=== PATIENT | female | born 1925 | race Caucasian/White ===

== ENCOUNTER 2016-05-19 09:06 | Inpatient (IN) | payer MEDICARE ==
--- NOTE | ~2016-05-19 | OP ---
Record Of Operation [facility] [address] [place]. [address] NAME: GEORGE GALAN : [birth year] STATUS : ADM Victor Manuel PAT#: [id number] AGE: 89 ADM/REG DATE : 05/19/16 MR#: [id number] REPORT SERV DATE: 05/19/16 DICTATED BY: DESIRE MURRIETA DATE: 05/19/16 REPORT STATUS : Draft TRANSCRIBED BY: MODL DATE: 05/19/16 DATE OF PROCEDURE: 05/19/2016 PREOPERATIVE DIAGNOSIS: Chronic wound left lower leg. POSTOPERATIVE DIAGNOSIS: Chronic wound left lower leg. PROCEDURES: 1. Debridement of skin and subcutaneous tissues, left leg 6 x 3 cm. 2. Placement of VAC dressing 18 cm2. SURGEON: Desire Murrieta M.D. ANESTHESIA: Local with sedation. COMPLICATIONS: None. BLOOD LOSS: Minimal. 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 It was felt to benefit from debridement. She had palpable pulses in her feet suggesting adequate perfusion. This was discussed in detail with the patient and daughters who expressed understanding and desired to proceed. DESCRIPTION OF PROCEDURE: The patient was taken to the operating room and placed in the supine position. She was given IV sedation without complication. Left leg was prepped and draped in a sterile fashion. Attention was turned to the side of the wound which is in the mid lower leg anteriorly. A 10 blade was used to excise the necrotic tissue to healthy bleeding tissue. Hemostasis was achieved with Bovie cautery. The wound measured 6 x 3 cm. A VAC sponge was cut to the appropriate length. The VAC adhesive was placed over the skin around the wound and the spinal was placed and an additional adhesive placed. Suction was initiated without difficulty. The patient tolerated the procedure well. She was taken to the recovery room in stable condition. QUE/LAILA Desire Murrieta M.D. / [id number] CC: Devin Marie
--- NOTE | ~2016-05-19 | DS ---
Discharge Summary [facility] [address] [place]. [address] NAME: GEORGE GALAN : [birth year] STATUS : DIS IN PAT#: [id number] AGE: 89 ADM/REG DATE : 05/19/16 MR#: [id number] REPORT SERV DATE: 05/29/16 DICTATED BY: DESIRE MURRIETA DATE: 05/28/16 REPORT STATUS : Draft TRANSCRIBED BY: LAILA DATE: 05/28/16 Data Collection from hospitalization DISCHARGE DIAGNOSES: 1. Chronic wound, left lower leg pain. 2. Parkinson's disease. 3. Hypertension. 4. Glaucoma. 5. Rheumatoid arthritis. CONSULTATIONS: None. PROCEDURES: Debridement of skin and subcutaneous tissue, left leg, 6 x 3 cm and placement of VAC dressing, 18 sq cm, 05/19/2016. DISCHARGE MEDICATIONS: Sinemet one tablet three times a day; Celebrex 200 mg daily; Voltaren 2 g topically four times a day as needed; Celexa 20 mg daily; vitamin B12, 1000 mcg IM every 30 days; vitamin D 5000 units daily; vitamin D3, 1000 units daily; CoQ10, 100 mg daily; Xalatan one drop at bedtime; Remeron 15 mg at bedtime; multivitamins one tablet daily; Bactroban 1 application topically twice a day; Monodox 100 mg twice a day; Actonel as instructed; Deltasone 10 mg daily; antacid 500 mg daily; D-mannose 1 twice a day; Actonel 35 mg every seven days; Tylenol caplet 1000 mg every six hours as needed; Lomotil 5 mg four times a day as needed; and A[place]o 5/325 one to two tablets every four hours as needed for pain. CONDITION ON DISCHARGE: Stable. DISPOSITION: The patient was discharged home to be followed by home health care. HOSPITAL COURSE: This is an 89-year-old female who had been seen in the office with a chronic necrotic wound on the left anterior lower leg. It was felt that this would benefit from debridement. She had palpable pulses in her feet suggesting adequate profusion. Treatment options were discussed, and it was elected to proceed with surgical intervention. She was admitted to the hospital at this time for further evaluation and treatment. Upon admission, she was taken to the operating room where she underwent the above-mentioned procedure, she tolerated this well, and there were no complications. The patient had had a urinary tract infection prior to admission. Urine culture was going to be checked. Over the next couple of days, she had no new complaints. She remained afebrile. Discharge planning was performed. On 05/22/2016, she had no new complaints. The wound VAC was clean, dry, and intact. Discharge instructions were given. She was evaluated by Physical Therapy. Due to her improved and stable condition, she was discharged home to be followed by home health care with the above-stated instructions. Information collected by: Adrianna Herrmann I submit the above information as my discharge summary. Discharge Summary [address] [address] NAME: GEORGE GALAN : [birth year] STATUS : DIS IN PAT#: [id number] AGE: 89 ADM/REG DATE : 05/19/16 MR#: [id number] REPORT SERV DATE: 05/29/16 DICTATED BY: DESIRE MURRIETA DATE: 05/28/16 REPORT STATUS : Draft TRANSCRIBED BY: LAILA DATE: 05/28/16 TG/LAILA Desire Murrieta M.D. / [id number] CC: Devin Marie
[~2016-05-19 09:06] MED LIST: ACET500CAP PO; ACTONEL35 MG PO; ADVIL PM1 CAP PO; ADVIL PO; ANTACID PO; ASAB PO; B121000P IM; BACDS PO; BACTROINT TOP; CALTRA600D PO; CELEBREX2 PO; CELEXA20 PO; CO Q-10100 MG PO; D 5000 PO; D-MANNOSE PO; GLUCCHONDR PO; HYDROCHLOROT12.5 MG PO; I10 PO; LOM PO; MONODOX100 MG PO; MULTIPLE VIT PO; NORCO1 TA1 PO; P10 PO; REM15 PO; SIN25 PO; VITAMIN D31000 UNIT PO; VOLTAREN1 % TOP; XALAT OPH; ZOCOR20 PO
[2016-05-19 09:43] LABS: BASOPHILS 0.3 %; BASOPHILS ABSOLUTE 0.03 10/3/uL (0.0-0.16); EOSINOPHILS 1.9 %; HEMOGLOBIN 10.8 g/dL (12.0-16.0); IMMATURE GRANULOCYTES 0.7 %; IMMATURE GRANULOCYTES ABSOLUTE 0.08 10/3/uL (0.0-0.11); LYMPHOCYTES 7.8 %; LYMPHOCYTES ABSOLUTE 0.83 10/3/uL (0.67-4.30); MEAN CORPUS HGB CONC 31.8 g/dL (32.0-36.0); MEAN CORPUSCULAR HEMOGLOB 30.7 pg (26.0-34.0); MEAN CORPUSCULAR VOLUME 96.6 fL (80-100); MEAN PLATELET VOLUME 9.6 fL (9.2-13.0); MONOCYTES 2.3 %; MONOCYTES ABSOLUTE 0.25 10/3/uL (0.21-1.20); NEUTROPHILS ABSOLUTE 9.28 10/3/uL (2.02-8.40); PLATELET COUNT 338 10/3/uL (150-400); RBC DISTRIBUTION WIDTH 14.6 % (12.0-16.0); RED CELL COUNT 3.52 10/6/uL (4.0-5.6)
[2016-05-19 09:44] LABS: MANUAL DIFF NO %; WHITE BLOOD CELLS 10.7 10/3/uL (4.5-10.5)
[2016-05-19 09:56] LABS: BUN (BLOOD UREA NITROGEN) 47 MG/DL (6-23); CALCIUM, SERUM 8.8 MG/DL (8.5-10.4); CHLORIDE, SERUM 105 MMOL/L (96-112); CO2 (CARBON DIOXIDE) 26 MMOL/L (24-34); GFR AFRICAN AMERICAN 23 ML/MIN (>=60); GFR NON AFRICAN AMERICAN 20 ML/MIN (>=60); GLUCOSE, SERUM 94 MG/DL (60-99); POTASSIUM, SERUM 4.2 MMOL/L (3.5-5.3); SODIUM, SERUM 140 MMOL/L (135-148)
[2016-05-19 09:57] LABS: CREATININE 2.16 MG/DL (0.55-1.02)
[2016-05-22 12:00] LABS: ASCORBIC ACID (UR NOT ORDER) NEG (NEG); BILIRUBIN, URINE NEGATIVE (NEG); KETONE, URINE 20 MG/DL (NEG); LEUKOCYTE ESTERASE(NOT OR NEG (NEG); WBC (NOT ORDERED) (RFLEX) 1 (0-5)
== END 2016-05-22 16:21 | disposition home health service (06) | DRG 264 ==
LOC: SDC 09:06 → SDC/OF 12:10 → 2SO 16:06
PROVIDERS: Surgery
PROC: 0JBP0ZZ Excision of Left Lower Leg Subcutaneous Tissue and Fascia, Open Approach (ICD-10-PCS; principal; 2016-05-19 10:15)
DX: I70.262 Atherosclerosis of native arteries of extremities with gangrene, left leg (principal); G20 Parkinson's disease; N39.0 Urinary tract infection, site not specified; L97.322 Non-pressure chronic ulcer of left ankle with fat layer exposed; Z98.890 Other specified postprocedural states; Z80.0 Family history of malignant neoplasm of digestive organs; H40.9 Unspecified glaucoma; E78.5 Hyperlipidemia, unspecified; M06.9 Rheumatoid arthritis, unspecified
CPT/HCPCS: 80048; 81001; 85025; 93005; 97162-GP; A9270-GY; G8978-CM-GP; G8979-CL-GP; J0690; J1720; J2405; J3010

== ENCOUNTER 2016-06-10 23:21 | Emergency (ER) | payer MEDICARE ==
[2016-06-10 23:30] LABS: BASOPHILS 0.3 %; BASOPHILS ABSOLUTE 0.05 10/3/uL (0.0-0.16); EOSINOPHILS 0.6 %; EOSINOPHILS ABSOLUTE 0.09 10/3/uL (0.0-0.53); HEMATOCRIT 31.9 % (36.0-48.0); HEMOGLOBIN 10.2 g/dL (12.0-16.0); IMMATURE GRANULOCYTES 1.5 %; IMMATURE GRANULOCYTES ABSOLUTE 0.24 10/3/uL (0.0-0.11); LYMPHOCYTES 12.7 %; LYMPHOCYTES ABSOLUTE 2.03 10/3/uL (0.67-4.30); MEAN CORPUSCULAR HEMOGLOB 31.4 pg (26.0-34.0); MEAN CORPUSCULAR VOLUME 98.2 fL (80-100); MEAN PLATELET VOLUME 9.4 fL (9.2-13.0); MONOCYTES ABSOLUTE 0.48 10/3/uL (0.21-1.20); NEUTROPHILS 81.9 %; NEUTROPHILS ABSOLUTE 13.13 10/3/uL (2.02-8.40); PLATELET COUNT 265 10/3/uL (150-400); RBC DISTRIBUTION WIDTH 14.7 % (12.0-16.0); RED CELL COUNT 3.25 10/6/uL (4.0-5.6)
[2016-06-10 23:31] LABS: MANUAL DIFF NO %
[2016-06-10 23:37] LABS: INTERNATIONAL NORMAL RATI 1.1 UNITS (-); PARTIAL THROMBO TIME 26.5 SEC (22.5-37.2); PROTIME (NOT ORD) 13.6 SEC (12.0-14.5)
[2016-06-10 23:46] LABS: A/G RATIO 0.6 (0.7-1.9); ALBUMIN 2.6 G/DL (3.5-5.0); ALKALINE PHOSPHATASE 81 U/L (45-117); BUN (BLOOD UREA NITROGEN) 33 MG/DL (6-23); CHLORIDE, SERUM 105 MMOL/L (96-112); CO2 (CARBON DIOXIDE) 28 MMOL/L (24-34); CREATININE 1.36 MG/DL (0.55-1.02); GFR AFRICAN AMERICAN 40 ML/MIN (>=60); GFR NON AFRICAN AMERICAN 34 ML/MIN (>=60); GLOBULIN 4.1 G/DL (2.5-4.1); GLUCOSE, SERUM 113 MG/DL (60-99); POTASSIUM, SERUM 3.9 MMOL/L (3.5-5.3); SGOT(AST) 14 U/L (5-40); SGPT(ALT) 11 U/L (5-65); SODIUM, SERUM 141 MMOL/L (135-148); TOTAL BILIRUBIN 0.3 MG/DL (0-1.2); TOTAL PROTEIN 6.7 G/DL (6.0-8.5)
[2016-06-10 23:52] LABS: LACTATE 1.1 MMOL/L (0.3-2.4)
[2016-06-10 23:56] LABS: ASCORBIC ACID (UR NOT ORDER) 40 (NEG); BILIRUBIN, URINE NEGATIVE (NEG); ER URINALYSIS TAT 0 Hrs 00 Mins; KETONE, URINE TRACE MG/DL (NEG); LEUKOCYTE ESTERASE(NOT OR NEG (NEG); NITRITE (URINE) NEG (NEG); WBC (NOT ORDERED) (RFLEX) 2 (0-5)
[2016-06-11 00:20] LABS: PROCALCITONIN 0.27 ng/mL (<0.5)
== END 2016-06-11 02:10 | disposition home or self-care (01) ==
LOC: ER 23:21
PROVIDERS: Nurse Practitioner
DX: L03.116 Cellulitis of left lower limb (principal); I83.024 Varicose veins of left lower extremity with ulcer of heel and midfoot; D72.829 Elevated white blood cell count, unspecified; I10 Essential (primary) hypertension; G20 Parkinson's disease; M06.9 Rheumatoid arthritis, unspecified; Z79.52 Long term (current) use of systemic steroids; Z79.899 Other long term (current) drug therapy
CPT/HCPCS: 71010; 80053; 81001; 83605; 84145; 85025; 85610; 85730; 87040; 87070; 87077; 87186; 87205; 99284; A9270-GY